=== PATIENT | female | born 1980 | race Caucasian/White ===

== ENCOUNTER → 2019-06-09 | Outpatient (CLI) | payer BC ==
[2019-06-09 20:20] LABS: FREE T3 2.8 PG/ML (2.2-4.0); FREE T4 0.84 NG/DL (0.76-1.46); THYROID STIMULATING HORMONE 3.16 uIU/ML (0.358-3.740); THYROXINE (T4) 6.8 UG/DL (4.5-12.0)
[2019-06-09 20:21] LABS: TOTAL 25(OH) VITAMIN D 95.3 NG/ML (30.0-100.0); TOTAL T3 104.7 NG/DL (60.0-181.0)
== END ==
LOC: M WUC 16:51
PROVIDERS: ATTEND Internal Medicine Endocrinology, Diabetes & Metabolism
DX: Z83.49 Family history of other endocrine, nutritional and metabolic diseases (principal); E05.00 Thyrotoxicosis with diffuse goiter without thyrotoxic crisis or storm; E06.3 Autoimmune thyroiditis; E04.9 Nontoxic goiter, unspecified; E55.9 Vitamin D deficiency, unspecified

== ENCOUNTER → 2019-07-04 | Outpatient (CLI) | payer BC ==
[2019-07-04 11:44] LABS: ALBUMIN 3.8 GM/DL (3.2-5.2); ALT/SGPT 16 U/L (12-78); BILIRUBIN,TOTAL 0.5 MG/DL (0.2-1.0); BLOOD UREA NITROGEN 12 MG/DL (7-18); CALCIUM LEVEL 8.7 MG/DL (8.5-10.1); CARBON DIOXIDE LEVEL 27 MEQ/L (21-32); CHLORIDE LEVEL 108 MEQ/L (98-107); CREATININE FOR GFR 0.57 MG/DL (0.55-1.30); FREE T4 1.05 NG/DL (0.76-1.46); GLOMERULAR FILTRATION RATE > 60.0 (>60); GLUCOSE, FASTING 91 MG/DL (70-100); POTASSIUM SERUM 4.9 MEQ/L (3.5-5.1); SODIUM LEVEL 140 MEQ/L (136-145); THYROID STIMULATING HORMONE 0.727 uIU/ML (0.358-3.740); THYROXINE (T4) 10.4 UG/DL (4.5-12.0); TOTAL PROTEIN 6.8 GM/DL (6.4-8.2)
[2019-07-04 11:45] LABS: TOTAL 25(OH) VITAMIN D 72.3 NG/ML (30.0-100.0); TOTAL T3 114.5 NG/DL (60.0-181.0); VITAMIN B12 LEVEL 424 PG/ML (247-911)
== END ==
LOC: M WUC 08:33
PROVIDERS: ATTEND Internal Medicine Endocrinology, Diabetes & Metabolism
DX: E06.3 Autoimmune thyroiditis (principal); E04.9 Nontoxic goiter, unspecified; E55.9 Vitamin D deficiency, unspecified; E05.00 Thyrotoxicosis with diffuse goiter without thyrotoxic crisis or storm; Z83.49 Family history of other endocrine, nutritional and metabolic diseases

== ENCOUNTER → 2019-10-12 | Outpatient (CLI) | payer BC ==
[2019-10-12 12:38] LABS: ALBUMIN 3.7 GM/DL (3.2-5.2); ALT/SGPT 13 U/L (12-78); BILIRUBIN,TOTAL 0.3 MG/DL (0.2-1.0); BLOOD UREA NITROGEN 15 MG/DL (7-18); CALCIUM LEVEL 8.6 MG/DL (8.5-10.1); CARBON DIOXIDE LEVEL 25 MEQ/L (21-32); CHLORIDE LEVEL 109 MEQ/L (98-107); CREATININE FOR GFR 0.63 MG/DL (0.55-1.30); FREE T4 0.91 NG/DL (0.76-1.46); GLOMERULAR FILTRATION RATE > 60.0 (>60); GLUCOSE, FASTING 92 MG/DL (70-100); POTASSIUM SERUM 4.3 MEQ/L (3.5-5.1); SODIUM LEVEL 139 MEQ/L (136-145); THYROXINE (T4) 9.5 UG/DL (4.5-12.0); TOTAL PROTEIN 6.6 GM/DL (6.4-8.2)
[2019-10-13 09:31] LABS: TOTAL 25(OH) VITAMIN D 67.2 NG/ML (30.0-100.0); VITAMIN B12 LEVEL 338 PG/ML (247-911)
== END ==
LOC: M WUC 08:38
PROVIDERS: ATTEND Internal Medicine Endocrinology, Diabetes & Metabolism
DX: Z83.49 Family history of other endocrine, nutritional and metabolic diseases (principal); E05.00 Thyrotoxicosis with diffuse goiter without thyrotoxic crisis or storm; E06.3 Autoimmune thyroiditis; E04.9 Nontoxic goiter, unspecified; E55.9 Vitamin D deficiency, unspecified

== ENCOUNTER → 2019-12-19 | Outpatient (CLI) | payer BC ==
[2019-12-19 13:40] LABS: ALT/SGPT 18 U/L (12-78); BILIRUBIN,TOTAL 0.9 MG/DL (0.2-1.0); BLOOD UREA NITROGEN 14 MG/DL (7-18); CALCIUM LEVEL 8.8 MG/DL (8.5-10.1); CARBON DIOXIDE LEVEL 26 MEQ/L (21-32); CHLORIDE LEVEL 107 MEQ/L (98-107); CREATININE FOR GFR 0.68 MG/DL (0.55-1.30); FREE T4 0.95 NG/DL (0.76-1.46); GLOMERULAR FILTRATION RATE > 60.0 (>60); GLUCOSE, FASTING 74 MG/DL (70-100); POTASSIUM SERUM 4.8 MEQ/L (3.5-5.1); SODIUM LEVEL 140 MEQ/L (136-145); THYROID STIMULATING HORMONE 0.993 uIU/ML (0.358-3.740); THYROXINE (T4) 9.9 UG/DL (4.5-12.0); TOTAL PROTEIN 7.2 GM/DL (6.4-8.2); VITAMIN B12 LEVEL 329 PG/ML (247-911)
== END ==
LOC: M WUC 08:25
PROVIDERS: ATTEND Internal Medicine Endocrinology, Diabetes & Metabolism
DX: E05.00 Thyrotoxicosis with diffuse goiter without thyrotoxic crisis or storm (principal); E06.3 Autoimmune thyroiditis; E04.9 Nontoxic goiter, unspecified; E55.9 Vitamin D deficiency, unspecified; Z83.49 Family history of other endocrine, nutritional and metabolic diseases

== ENCOUNTER → 2020-04-19 | Outpatient (CLI) | payer BC ==
[2020-04-19 20:37] LABS: ALT/SGPT 17 U/L (12-78); BILIRUBIN,TOTAL 0.3 MG/DL (0.2-1.0); BLOOD UREA NITROGEN 16 MG/DL (7-18); CALCIUM LEVEL 9.1 MG/DL (8.5-10.1); CARBON DIOXIDE LEVEL 26 MEQ/L (21-32); CHLORIDE LEVEL 103 MEQ/L (98-107); CREATININE FOR GFR 0.42 MG/DL (0.55-1.30); FREE T3 2.8 PG/ML (2.2-4.0); FREE T4 0.97 NG/DL (0.76-1.46); GLOMERULAR FILTRATION RATE > 60.0 (>60); GLUCOSE, FASTING 95 MG/DL (70-100); POTASSIUM SERUM 4.6 MEQ/L (3.5-5.1); SODIUM LEVEL 138 MEQ/L (136-145); THYROXINE (T4) 9.8 UG/DL (4.5-12.0); TOTAL PROTEIN 7.1 GM/DL (6.4-8.2)
[2020-04-19 20:38] LABS: TOTAL 25(OH) VITAMIN D 54.6 NG/ML (30.0-100.0); TOTAL T3 115.3 NG/DL (60.0-181.0)
[2020-04-19 20:39] LABS: VITAMIN B12 LEVEL 364 PG/ML (247-911)
== END ==
LOC: M WUC 15:35
PROVIDERS: ATTEND Internal Medicine Endocrinology, Diabetes & Metabolism
DX: E05.00 Thyrotoxicosis with diffuse goiter without thyrotoxic crisis or storm (principal); E06.3 Autoimmune thyroiditis; E04.9 Nontoxic goiter, unspecified; E55.9 Vitamin D deficiency, unspecified; Z83.49 Family history of other endocrine, nutritional and metabolic diseases

== ENCOUNTER → 2020-05-17 | Outpatient (CLI) | payer BC ==
[2020-05-17 16:49] LABS: FREE T4 1.12 NG/DL (0.76-1.46); THYROID STIMULATING HORMONE 0.273 uIU/ML (0.358-3.740); THYROXINE (T4) 9.2 UG/DL (4.5-12.0); TOTAL T3 134.9 NG/DL (60.0-181.0)
== END ==
LOC: M WUC 14:09
PROVIDERS: ATTEND Internal Medicine Endocrinology, Diabetes & Metabolism
DX: E05.00 Thyrotoxicosis with diffuse goiter without thyrotoxic crisis or storm (principal); Z83.49 Family history of other endocrine, nutritional and metabolic diseases; E06.3 Autoimmune thyroiditis; E04.9 Nontoxic goiter, unspecified; E55.9 Vitamin D deficiency, unspecified

== ENCOUNTER → 2020-06-02 | Outpatient (CLI) | payer BC ==
[2020-06-02 10:26] LABS: FREE T3 3.4 PG/ML (2.2-4.0); FREE T4 1.04 NG/DL (0.76-1.46); THYROID STIMULATING HORMONE 0.287 uIU/ML (0.358-3.740); THYROXINE (T4) 10.4 UG/DL (4.5-12.0)
[2020-06-02 10:27] LABS: TOTAL 25(OH) VITAMIN D 35.9 NG/ML (30.0-100.0)
[2020-06-02 10:28] LABS: TOTAL T3 146.3 NG/DL (60.0-181.0)
== END ==
LOC: M WUC 08:17
PROVIDERS: ATTEND Internal Medicine Endocrinology, Diabetes & Metabolism
DX: Z83.49 Family history of other endocrine, nutritional and metabolic diseases (principal); E05.00 Thyrotoxicosis with diffuse goiter without thyrotoxic crisis or storm; E06.3 Autoimmune thyroiditis; E04.9 Nontoxic goiter, unspecified; E55.9 Vitamin D deficiency, unspecified

== ENCOUNTER → 2020-06-28 | Outpatient (CLI) | payer BC ==
[2020-06-28 16:42] LABS: FREE T3 3.2 PG/ML (2.2-4.0); FREE T4 1.01 NG/DL (0.76-1.46); THYROID STIMULATING HORMONE 0.19 uIU/ML (0.358-3.740); THYROXINE (T4) 9.9 UG/DL (4.5-12.0)
[2020-06-28 16:44] LABS: TOTAL 25(OH) VITAMIN D 39.5 NG/ML (30.0-100.0)
[2020-06-28 16:45] LABS: TOTAL T3 137.9 NG/DL (60.0-181.0)
== END ==
LOC: M WUC 13:43
PROVIDERS: ATTEND Internal Medicine Endocrinology, Diabetes & Metabolism
DX: E05.00 Thyrotoxicosis with diffuse goiter without thyrotoxic crisis or storm (principal); E06.3 Autoimmune thyroiditis; E04.9 Nontoxic goiter, unspecified; E55.9 Vitamin D deficiency, unspecified; Z83.49 Family history of other endocrine, nutritional and metabolic diseases

== ENCOUNTER → 2020-08-27 | Outpatient (CLI) | payer BC ==
[2020-08-27 11:49] LABS: FREE T3 2.6 PG/ML (2.2-4.0); FREE T4 0.92 NG/DL (0.76-1.46); THYROID STIMULATING HORMONE 0.187 uIU/ML (0.358-3.740); THYROXINE (T4) 7.6 UG/DL (4.5-12.0); TOTAL 25(OH) VITAMIN D 40.9 NG/ML (30.0-100.0); TOTAL T3 106.6 NG/DL (60.0-181.0)
== END ==
LOC: M WUC 09:02
PROVIDERS: ATTEND Internal Medicine Endocrinology, Diabetes & Metabolism
DX: E05.00 Thyrotoxicosis with diffuse goiter without thyrotoxic crisis or storm (principal); Z83.49 Family history of other endocrine, nutritional and metabolic diseases; E06.3 Autoimmune thyroiditis; E04.9 Nontoxic goiter, unspecified; E55.9 Vitamin D deficiency, unspecified

== ENCOUNTER → 2020-09-14 | Outpatient (CLI) | payer BC ==
[2020-09-14 17:24] LABS: ALBUMIN 3.9 GM/DL (3.2-5.2); ALT/SGPT 21 U/L (12-78); BILIRUBIN,TOTAL 0.4 MG/DL (0.2-1.0); BLOOD UREA NITROGEN 11 MG/DL (7-18); CALCIUM LEVEL 8.8 MG/DL (8.5-10.1); CARBON DIOXIDE LEVEL 25 MEQ/L (21-32); CHLORIDE LEVEL 108 MEQ/L (98-107); FREE T3 3.2 PG/ML (2.2-4.0); FREE T4 1.06 NG/DL (0.76-1.46); GLOMERULAR FILTRATION RATE > 60.0 (>60); GLUCOSE, FASTING 67 MG/DL (70-100); SODIUM LEVEL 139 MEQ/L (136-145); THYROID STIMULATING HORMONE 0.223 uIU/ML (0.358-3.740); THYROXINE (T4) 8.2 UG/DL (4.5-12.0); TOTAL 25(OH) VITAMIN D 49.9 NG/ML (30.0-100.0); TOTAL PROTEIN 6.8 GM/DL (6.4-8.2)
[2020-09-14 17:25] LABS: TOTAL T3 152.8 NG/DL (60.0-181.0); VITAMIN B12 LEVEL 332 PG/ML (247-911)
== END ==
LOC: M WUC 14:50
PROVIDERS: ATTEND Internal Medicine Endocrinology, Diabetes & Metabolism
DX: E05.00 Thyrotoxicosis with diffuse goiter without thyrotoxic crisis or storm (principal); E06.3 Autoimmune thyroiditis; E04.9 Nontoxic goiter, unspecified; E55.9 Vitamin D deficiency, unspecified; Z83.49 Family history of other endocrine, nutritional and metabolic diseases

== ENCOUNTER → 2020-10-12 | Outpatient (REF) | payer BC ==
[2020-10-12 13:36] LABS: HEMATOCRIT 45.4 % (36.0-47.0); HEMOGLOBIN 14.9 g/dl (12.0-15.5); MEAN CORPUSCULAR HEMOGLOBIN 28.6 pg (27.0-33.0); MEAN CORPUSCULAR HGB CONC 32.8 g/dl (32.0-36.5); MEAN CORPUSCULAR VOLUME 87.1 fl (80.0-96.0); PLATELET COUNT, AUTOMATED 266 10^3/uL (150-450); RED BLOOD COUNT 5.21 10^6/uL (4.00-5.40)
[2020-10-12 14:57] LABS: HEPATITIS C VIRUS ABY INDEX < 0.0 INDEX (<0.8); HIV 1&2 SCREEN CENTAUR NEGATIVE (NEGATIVE)
[2020-10-12 15:19] LABS: CHLAMYDIA DNA AMPLIFICATION NEGATIVE (NEGATIVE); GC DNA AMPLIFICATION NEGATIVE (NEGATIVE)
== END ==
LOC: M PLALAB 09:32
PROVIDERS: ATTEND Specialist
DX: Z34.81 Encounter for supervision of other normal pregnancy, first trimester (principal)

== ENCOUNTER → 2020-10-13 | Outpatient (CLI) | payer BC ==
[2020-10-13 18:41] LABS: FREE T3 3.4 PG/ML (2.2-4.0); FREE T4 1.04 NG/DL (0.76-1.46); THYROID STIMULATING HORMONE 0.14 uIU/ML (0.358-3.740); THYROXINE (T4) 9.8 UG/DL (4.5-12.0)
[2020-10-13 18:42] LABS: TOTAL 25(OH) VITAMIN D 36.5 NG/ML (30.0-100.0)
== END ==
LOC: M WUC 14:25
PROVIDERS: ATTEND Internal Medicine Endocrinology, Diabetes & Metabolism
DX: E05.00 Thyrotoxicosis with diffuse goiter without thyrotoxic crisis or storm (principal); Z83.49 Family history of other endocrine, nutritional and metabolic diseases; E06.3 Autoimmune thyroiditis; E04.9 Nontoxic goiter, unspecified; E55.9 Vitamin D deficiency, unspecified

== ENCOUNTER 2020-11-06 20:46 | Emergency (ER) | payer BC ==
[~2020-11-06] VITALS: Ht 147.3 cm; Wt 80.1 kg
[2020-11-06 21:46] LABS: BASO % 0.3 % (0.0-1.0); EOS # 0.2 10^3/uL (0.0-0.5); EOS % 1.3 % (0.0-3.0); HEMATOCRIT 42.6 % (36.0-47.0); HEMOGLOBIN 14.4 g/dl (12.0-15.5); LYMPH # 2.9 10^3/uL (1.5-5.0); LYMPH % 19.5 % (24.0-44.0); MEAN CORPUSCULAR HEMOGLOBIN 28.7 pg (27.0-33.0); MEAN CORPUSCULAR HGB CONC 33.8 g/dl (32.0-36.5); MONO # 1.4 10^3/uL (0.0-0.8); MONO % 9.5 % (2.0-8.0); NEUTROPHILS # 10.2 10^3/uL (1.5-8.5); PLATELET COUNT, AUTOMATED 251 10^3/uL (150-450); RED BLOOD COUNT 5.01 10^6/uL (4.00-5.40); WHITE BLOOD COUNT 14.8 10^3/uL (4.0-10.0)
--- NOTE | 2020-11-06 22:14 | REPVR ---
PROCEDURE INFORMATION: Exam: US First Trimester, Transabdominal Exam date and time: 11/06/2020 9:24 PM Age: 40 years old Clinical indication: Lmp or gestational age (in weeks): 12w 2d; Other: Vaginal bleeding; ; Additional info: Vaginal bleeding, 12 weeks TECHNIQUE: Imaging protocol: Real-time transabdominal obstetrical ultrasound of the maternal pelvis and a first trimester , less than 14 weeks 0 days, with image documentation. COMPARISON: No relevant prior studies available. FINDINGS: Gestation: Intrauterine gestation unremarkable. Embryonic/ heart rate: heart rate 153 bpm. Extra-embryonic membranes/Placenta: Unremarkable. No subchorionic bleed. Amniotic fluid: Amniotic fluid is normal for gestational age. BIOMETRY: Gestational age (AUA): Gestational age 12 weeks and 3 days. Estimated due date (AUA): Estimated due date May 18, 2021. Vickery-Rump length: Vickery-rump length measures 5.8 cm. MATERNAL: Uterus: Unremarkable. Cervix: Unremarkable. Right adnexa: Unremarkable right ovary measuring 2.2 cm. Left adnexa: Left ovary not visualized. Intraperitoneal space: No intraperitoneal free fluid. IMPRESSION: 1. No acute abnormality. 2. Living intrauterine gestation measuring 12 weeks and 3 days with due date May 18, 2021. Electronically signed by: Ruben Celaya On 11/06/2020 22:14:24 PM
[2020-11-06 22:53] LABS: BLOOD UREA NITROGEN 8 MG/DL (7-18); CALCIUM LEVEL 9.2 MG/DL (8.5-10.1); CARBON DIOXIDE LEVEL 25 MEQ/L (21-32); CHLORIDE LEVEL 108 MEQ/L (98-107); CREATININE FOR GFR 0.42 MG/DL (0.55-1.30); GLOMERULAR FILTRATION RATE > 60.0 (>60); GLUCOSE, FASTING 84 MG/DL (70-100); HCG, SERUM QUANTITATIVE 13180 MIU/ML; POTASSIUM SERUM 3.9 MEQ/L (3.5-5.1); SODIUM LEVEL 140 MEQ/L (136-145)
[2020-11-06 23:23] VITALS: BP 140/96
[2020-11-07 00:57] LABS: APPEARANCE, URINE CLEAR (CLEAR); BACTERIA, URINE AUTO NEGATIVE (NEGATIVE); BILIRUBIN, URINE AUTO NEGATIVE (NEGATIVE); BLOOD, URINE BLOOD 2+ (NEGATIVE); COLOR, URINE YELLOW (YELLOW); GLUCOSE, URINE (UA) AUTO NEGATIVE (NEGATIVE); KETONE, URINE AUTO 1+ mg/dL (NEGATIVE); LEUKOCYTE ESTERASE, URINE AUTO NEGATIVE (NEGATIVE); NITRITE, URINE AUTO NEGATIVE (NEGATIVE); PROTEIN, URINE AUTO NEGATIVE (NEGATIVE); RBC, URINE AUTO 2 /HPF (0-3); SPECIFIC GRAVITY URINE AUTO 1.014 (1.002-1.035); SQUAMOUS EPITHELIAL CELL UR AU 0 /HPF (0-6); UROBILINOGEN, URINE AUTO 0.2 mg/dL (0.0-2.0); WBC, URINE AUTO 0 /HPF (0-3)
== END 2020-11-07 01:48 | disposition home or self-care (01) ==
LOC: M ED 20:46
DX: O20.8 Other hemorrhage in early pregnancy (principal); Z3A.12 12 weeks gestation of pregnancy; O99.331 Smoking (tobacco) complicating pregnancy, first trimester; O99.281 Endocrine, nutritional and metabolic diseases complicating pregnancy, first trimester; O09.521 Supervision of elderly multigravida, first trimester

== ENCOUNTER → 2020-11-10 | Outpatient (CLI) | payer BC ==
[2020-11-10 17:08] LABS: FREE T3 3.3 PG/ML (2.2-4.0); FREE T4 1.05 NG/DL (0.76-1.46); THYROID STIMULATING HORMONE 0.178 uIU/ML (0.358-3.740)
[2020-11-10 17:10] LABS: TOTAL 25(OH) VITAMIN D 46.2 NG/ML (30.0-100.0)
[2020-11-10 17:11] LABS: TOTAL T3 245.8 NG/DL (60.0-181.0)
== END ==
LOC: M WUC 14:18
PROVIDERS: ATTEND Internal Medicine Endocrinology, Diabetes & Metabolism
DX: O99.280 Endocrine, nutritional and metabolic diseases complicating pregnancy, unspecified trimester (principal); Z83.49 Family history of other endocrine, nutritional and metabolic diseases; E05.00 Thyrotoxicosis with diffuse goiter without thyrotoxic crisis or storm; E06.3 Autoimmune thyroiditis; E04.9 Nontoxic goiter, unspecified; E55.9 Vitamin D deficiency, unspecified

== ENCOUNTER → 2020-12-08 | Outpatient (CLI) | payer BC ==
[2020-12-08 16:50] LABS: FREE T3 3.2 PG/ML (2.2-4.0); FREE THYROXINE INDEX 3.7 % (1.3-4.8); THYROID STIMULATING HORMONE 0.216 uIU/ML (0.358-3.740); THYROXINE (T4) 16.1 UG/DL (4.5-12.0); TOTAL T3 272.4 NG/DL (60.0-181.0)
== END ==
LOC: M WUC 13:42
PROVIDERS: ATTEND Internal Medicine Endocrinology, Diabetes & Metabolism
DX: E05.00 Thyrotoxicosis with diffuse goiter without thyrotoxic crisis or storm (principal); E06.3 Autoimmune thyroiditis; E04.9 Nontoxic goiter, unspecified; O99.280 Endocrine, nutritional and metabolic diseases complicating pregnancy, unspecified trimester; E55.9 Vitamin D deficiency, unspecified; Z83.49 Family history of other endocrine, nutritional and metabolic diseases; Z3A.00 Weeks of gestation of pregnancy not specified

== ENCOUNTER → 2020-12-24 | Outpatient (CLI) | payer BC ==
--- NOTE | 2020-12-24 09:18 | REP ---
INDICATION: ANATOMY. COMPARISON: Comparison study November 06, 2020. TECHNIQUE: Transabdominal obstetric sonography. FINDINGS: Scanning through the gravid uterus demonstrates a viable single intrauterine gestation in transverse lie. motion is observed and heart rate is recorded at 133 beats per minute. A a fundal placenta is seen, grade 1, without evidence of placenta previa. Closed cervical length is measured at 5.2 cm transabdominally. No extrauterine abnormality is observed. Amniotic fluid is subjectively normal. The following anatomic structures are identified felt to be unremarkable: cranium and intracranial contents, lungs, four-chamber heart, diaphragm, left-sided stomach, abdominal wall cord insertion, right and left kidney, urinary bladder, upper and lower extremities, three-vessel cord. The following anatomic structures are less than optimally identified due to body habitus and position: Face and profile nose and lips, left and right ventricular cardiac outflow tract views, spine. Biometry chart: BPD 4.5 cm, 19 weeks 4 days Head circumference 16.8 cm, 19 weeks 3 days Abdominal circumference 14.2 cm, 19 weeks 4 days Femur length 3.1 cm, 19 weeks 4 days Humeral length 2.8 cm, 19 weeks 1 day HC AC ratio normal 1.19 Cephalic index normal 0.74 Estimated weight 299 g, 0 lb 10 oz, 84th percentile for 18 weeks 6 days IMPRESSION: Viable single intrauterine gestation at 19 weeks 3 days by today's composite sonographic criteria. JUANITA by today's sonography May 17, 2021. No complication identified. Expected gestational age estimate based on known JUANITA of 21 May 2021 is 18 weeks 6 days. Appropriate interval growth. anatomic survey is less than complete as above. <Electronically signed by Shun Hernandez > 12/24/20 [id number]
== END ==
LOC: M WHC 07:16
PROVIDERS: ATTEND Advanced Practice Midwife
DX: O34.211 Maternal care for low transverse scar from previous cesarean delivery (principal); O32.2XX0 Maternal care for transverse and oblique lie, not applicable or unspecified; Z3A.19 19 weeks gestation of pregnancy

== ENCOUNTER → 2021-01-04 | Outpatient (CLI) | payer BC ==
[2021-01-04 16:24] LABS: FREE T3 3.4 PG/ML (2.2-4.0); FREE T4 0.97 NG/DL (0.76-1.46); THYROID STIMULATING HORMONE 0.302 uIU/ML (0.358-3.740); THYROXINE (T4) 15.1 UG/DL (4.5-12.0); TOTAL T3 281.1 NG/DL (60.0-181.0)
== END ==
LOC: M WUC 13:24
PROVIDERS: ATTEND Internal Medicine Endocrinology, Diabetes & Metabolism
DX: O99.280 Endocrine, nutritional and metabolic diseases complicating pregnancy, unspecified trimester (principal); Z83.49 Family history of other endocrine, nutritional and metabolic diseases; E05.00 Thyrotoxicosis with diffuse goiter without thyrotoxic crisis or storm; E06.3 Autoimmune thyroiditis; E04.9 Nontoxic goiter, unspecified; E55.9 Vitamin D deficiency, unspecified

== ENCOUNTER → 2021-02-11 | Outpatient (CLI) | payer BC, MEDICAID ==
--- NOTE | 2021-02-11 09:58 | REP ---
INDICATION: F/U ANATOMY COMPARISON: 12/24/2020 TECHNIQUE: Transabdominal obstetrical ultrasound with color Doppler evaluation. FINDINGS: Examination demonstrates a single live intrauterine in transverse (head to maternal right) presentation. motion is identified by technologist. Placenta is noted fundal and grade 1 without evidence for placenta previa or abruption. Amniotic fluid volume is normal. Cervix measures 4.6 cm in length and appears closed.. Selected gestational age: 25 weeks 6 days with JUANITA 05/21/2021. Gestational age by current measurements 27 weeks 3 days with JUANITA 05/10/2021. FHR equals 150 beats per minute. Estimated weight 1093 grams (greater than 97thpercentile). Anatomical assessment demonstrates normal structures including facial features, facial profile, nose/lips, heart/ventricular outflow tracts. Spine again poorly evaluated due to positioning.. IMPRESSION: 1. Single live intrauterine in transverse lie. 2. Greater than expected interval growth is appreciated based on selected age by estimated date of delivery at 25 weeks 6 days. 3. Continued limited evaluation of the spine. Remainder of the anatomical assessment is complete and normal. <Electronically signed by Juan Cline > 02/11/21 [id number]
== END ==
LOC: M WHC 08:26
PROVIDERS: ATTEND Obstetrics & Gynecology
DX: O34.211 Maternal care for low transverse scar from previous cesarean delivery (principal); O32.2XX0 Maternal care for transverse and oblique lie, not applicable or unspecified; Z3A.25 25 weeks gestation of pregnancy; O36.63X0 Maternal care for excessive fetal growth, third trimester, not applicable or unspecified

== ENCOUNTER → 2021-02-14 | Outpatient (CLI) | payer BC, MEDICAID ==
[2021-02-14 10:29] LABS: HEMATOCRIT 36.3 % (36.0-47.0); MEAN CORPUSCULAR HEMOGLOBIN 29.1 pg (27.0-33.0); MEAN CORPUSCULAR HGB CONC 33.1 g/dl (32.0-36.5); MEAN CORPUSCULAR VOLUME 88.1 fl (80.0-96.0); PLATELET COUNT, AUTOMATED 245 10^3/uL (150-450); RED BLOOD COUNT 4.12 10^6/uL (4.00-5.40); WHITE BLOOD COUNT 15.8 10^3/uL (4.0-10.0)
[2021-02-14 11:37] LABS: THYROID STIMULATING HORMONE 0.287 uIU/ML (0.358-3.740)
== END ==
LOC: M PLALAB 07:53
PROVIDERS: ATTEND Obstetrics & Gynecology
DX: O34.211 Maternal care for low transverse scar from previous cesarean delivery (principal)

== ENCOUNTER → 2021-03-14 | Outpatient (CLI) | payer BC, MEDICAID ==
--- NOTE | 2021-03-14 08:28 | REP ---
INDICATION: F/U ANATOMY COMPARISON: 02/11/2021 TECHNIQUE: Transabdominal obstetrical ultrasound with color Doppler evaluation. FINDINGS: Examination demonstrates a single live intrauterine in cephalic presentation. motion is identified by technologist. Placenta is noted fundal and grade 1 without evidence for placenta previa or abruption. Amniotic fluid volume is normal. Cervix measures 4.4 cm in length and appears closed.. Selected gestational age: 30 weeks 2 days with JUANITA 05/21/2021. Gestational age by current measurements 32 weeks 2 days with JUANITA 05/07/2021. FHR equals 130 beats per minute. Estimated weight 1859 grams (88thpercentile). MARY: 16.3 cm Anatomical assessment demonstrates normal structures including spine. IMPRESSION: Single live intrauterine in cephalic presentation demonstrating appropriate interval growth. In conjunction with prior examination anatomical assessment is complete and normal. <Electronically signed by Juan Cline > 03/14/21 [id number]
== END ==
LOC: M WHC 07:10
PROVIDERS: ATTEND Obstetrics & Gynecology
DX: O34.211 Maternal care for low transverse scar from previous cesarean delivery (principal); Z3A.30 30 weeks gestation of pregnancy

== ENCOUNTER → 2021-03-18 | Outpatient (CLI) | payer BC, MEDICAID ==
[2021-03-18 10:20] LABS: FREE T4 0.95 NG/DL (0.76-1.46); THYROGLOBULIN ANTIBODY < 15.0 U/ML (<60.0); THYROID STIMULATING HORMONE 0.551 uIU/ML (0.358-3.740)
== END ==
LOC: M LAB 08:23
PROVIDERS: ATTEND Obstetrics & Gynecology
DX: O99.891 Other specified diseases and conditions complicating pregnancy (principal); R73.09 Other abnormal glucose; O99.282 Endocrine, nutritional and metabolic diseases complicating pregnancy, second trimester; E06.3 Autoimmune thyroiditis; Z3A.00 Weeks of gestation of pregnancy not specified

== ENCOUNTER → 2021-04-08 | Outpatient (CLI) | payer BC, MEDICAID ==
[2021-04-08 13:47] LABS: BLOOD UREA NITROGEN 8 MG/DL (7-18); CARBON DIOXIDE LEVEL 23 MEQ/L (21-32); CHLORIDE LEVEL 110 MEQ/L (98-107); CREATININE FOR GFR 0.52 MG/DL (0.55-1.30); GLOMERULAR FILTRATION RATE > 60.0 (>60); GLUCOSE, FASTING 85 MG/DL (70-100); POTASSIUM SERUM 4.3 MEQ/L (3.5-5.1); SODIUM LEVEL 140 MEQ/L (136-145)
[2021-04-08 13:48] LABS: ALBUMIN 2.8 GM/DL (3.2-5.2); ALT/SGPT 18 U/L (12-78); BILIRUBIN,TOTAL 0.2 MG/DL (0.2-1.0); CALCIUM LEVEL 9.3 MG/DL (8.5-10.1); FREE T3 2.9 PG/ML (2.2-4.0); THYROID STIMULATING HORMONE 0.271 uIU/ML (0.358-3.740); THYROXINE (T4) 15.9 UG/DL (4.5-12.0); TOTAL 25(OH) VITAMIN D 53.9 NG/ML (30.0-100.0); TOTAL PROTEIN 6.2 GM/DL (6.4-8.2); TOTAL T3 219.8 NG/DL (60.0-181.0); VITAMIN B12 LEVEL 398 PG/ML (247-911)
== END ==
LOC: M WUC 10:17
PROVIDERS: ATTEND Internal Medicine Endocrinology, Diabetes & Metabolism
DX: O99.280 Endocrine, nutritional and metabolic diseases complicating pregnancy, unspecified trimester (principal); E05.00 Thyrotoxicosis with diffuse goiter without thyrotoxic crisis or storm; E06.3 Autoimmune thyroiditis; E55.9 Vitamin D deficiency, unspecified

== ENCOUNTER → 2021-04-11 | Outpatient (CLI) | payer BC, MEDICAID ==
[~2021-04-11] MED LIST: ACET-897 PO; AFRI0.058; ECOT81TA5 PO; ERGO500029 PO; FAMO20TA5 PO; IBUP-1022 PO; OXYC1TAB23 PO; PRENTAB9 PO
== END ==
LOC: M WHC 07:37
PROVIDERS: ATTEND Obstetrics & Gynecology
DX: O26.843 Uterine size-date discrepancy, third trimester (principal); Z3A.34 34 weeks gestation of pregnancy

== ENCOUNTER → 2021-04-18 | Outpatient (REF) | payer BC, MEDICAID | LOC: M SFHCWAGY 16:47 | PROVIDERS: ATTEND Specialist | DX: Z34.83 Encounter for supervision of other normal pregnancy, third trimester (principal) ==

== ENCOUNTER → 2021-06-08 | Outpatient (CLI) | payer BC, MEDICAID ==
[2021-06-08 13:01] LABS: ALBUMIN 3.7 GM/DL (3.2-5.2); ALT/SGPT 24 U/L (12-78); BILIRUBIN,TOTAL 0.3 MG/DL (0.2-1.0); BLOOD UREA NITROGEN 13 MG/DL (7-18); CALCIUM LEVEL 8.9 MG/DL (8.5-10.1); CARBON DIOXIDE LEVEL 29 MEQ/L (21-32); CHLORIDE LEVEL 109 MEQ/L (98-107); CREATININE FOR GFR 0.73 MG/DL (0.55-1.30); FREE T3 2.8 PG/ML (2.2-4.0); FREE T4 1.06 NG/DL (0.76-1.46); GLOMERULAR FILTRATION RATE > 60.0 (>60); GLUCOSE, FASTING 93 MG/DL (70-100); POTASSIUM SERUM 4.5 MEQ/L (3.5-5.1); SODIUM LEVEL 143 MEQ/L (136-145); THYROXINE (T4) 11.3 UG/DL (4.5-12.0); TOTAL PROTEIN 6.8 GM/DL (6.4-8.2)
[2021-06-08 13:03] LABS: TOTAL 25(OH) VITAMIN D 55.6 NG/ML (30.0-100.0)
[2021-06-08 13:04] LABS: TOTAL T3 116.7 NG/DL (60.0-181.0); VITAMIN B12 LEVEL 287 PG/ML (247-911)
== END ==
LOC: M WUC 10:08
PROVIDERS: ATTEND Internal Medicine Endocrinology, Diabetes & Metabolism
DX: E05.00 Thyrotoxicosis with diffuse goiter without thyrotoxic crisis or storm (principal); E06.3 Autoimmune thyroiditis; E04.9 Nontoxic goiter, unspecified; O99.280 Endocrine, nutritional and metabolic diseases complicating pregnancy, unspecified trimester; E55.9 Vitamin D deficiency, unspecified; Z83.49 Family history of other endocrine, nutritional and metabolic diseases

== ENCOUNTER → 2021-09-08 | Outpatient (CLI) | payer BC, MEDICAID ==
[~2021-09-08] MED LIST changes: -AFRI0.058; +OXYM15SP2
[2021-09-08 09:40] LABS: BASO % 0.4 % (0.0-1.0); EOS # 0.1 10^3/uL (0.0-0.5); EOS % 0.5 % (0.0-3.0); HEMATOCRIT 43.5 % (36.0-47.0); HEMOGLOBIN 13.9 g/dl (12.0-15.5); LYMPH # 2.8 10^3/uL (1.5-5.0); LYMPH % 25.7 % (24.0-44.0); MEAN CORPUSCULAR HEMOGLOBIN 25.9 pg (27.0-33.0); MEAN CORPUSCULAR VOLUME 81.2 fl (80.0-96.0); MONO # 1.1 10^3/uL (0.0-0.8); MONO % 10.3 % (2.0-8.0); NEUTROPHILS # 6.8 10^3/uL (1.5-8.5); NEUTROPHILS % 62.8 % (36.0-66.0); PLATELET COUNT, AUTOMATED 301 10^3/uL (150-450); RED BLOOD COUNT 5.36 10^6/uL (4.00-5.40); WHITE BLOOD COUNT 10.8 10^3/uL (4.0-10.0)
[2021-09-08 10:15] LABS: ALBUMIN 3.5 GM/DL (3.2-5.2); ALT/SGPT 22 U/L (12-78); BILIRUBIN,TOTAL 0.4 MG/DL (0.2-1.0); BLOOD UREA NITROGEN 11 MG/DL (7-18); CALCIUM LEVEL 9.3 MG/DL (8.5-10.1); CARBON DIOXIDE LEVEL 25 MEQ/L (21-32); CHLORIDE LEVEL 109 MEQ/L (98-107); CREATININE FOR GFR 0.59 MG/DL (0.55-1.30); FREE T3 3.8 PG/ML (2.2-4.0); FREE T4 1.34 NG/DL (0.76-1.46); GLOMERULAR FILTRATION RATE > 60.0 (>60); GLUCOSE, FASTING 89 MG/DL (70-100); POTASSIUM SERUM 4.2 MEQ/L (3.5-5.1); SODIUM LEVEL 141 MEQ/L (136-145); THYROID STIMULATING HORMONE 0.006 uIU/ML (0.358-3.740); THYROXINE (T4) 12.8 UG/DL (4.5-12.0); TOTAL PROTEIN 6.7 GM/DL (6.4-8.2)
[2021-09-08 10:16] LABS: TOTAL T3 166.6 NG/DL (60.0-181.0)
== END ==
LOC: M WUC 08:14
PROVIDERS: ATTEND Internal Medicine Endocrinology, Diabetes & Metabolism
DX: O99.280 Endocrine, nutritional and metabolic diseases complicating pregnancy, unspecified trimester (principal); E05.00 Thyrotoxicosis with diffuse goiter without thyrotoxic crisis or storm; E06.3 Autoimmune thyroiditis; E04.9 Nontoxic goiter, unspecified; E55.9 Vitamin D deficiency, unspecified; Z3A.00 Weeks of gestation of pregnancy not specified; Z83.49 Family history of other endocrine, nutritional and metabolic diseases

== ENCOUNTER → 2021-11-23 | Outpatient (CLI) | payer BC, MEDICAID ==
[2021-11-23 11:06] LABS: ALBUMIN 3.6 GM/DL (3.2-5.2); ALT/SGPT 18 U/L (12-78); BILIRUBIN,TOTAL 0.3 MG/DL (0.2-1.0); BLOOD UREA NITROGEN 10 MG/DL (7-18); CALCIUM LEVEL 8.9 MG/DL (8.5-10.1); CARBON DIOXIDE LEVEL 25 MEQ/L (21-32); CHLORIDE LEVEL 107 MEQ/L (98-107); CREATININE FOR GFR 0.55 MG/DL (0.55-1.30); FREE T4 1.11 NG/DL (0.76-1.46); GLOMERULAR FILTRATION RATE > 60.0 (>60); GLUCOSE, FASTING 92 MG/DL (70-100); POTASSIUM SERUM 4.3 MEQ/L (3.5-5.1); SODIUM LEVEL 138 MEQ/L (136-145); THYROID STIMULATING HORMONE < 0.005 uIU/ML (0.358-3.740); THYROXINE (T4) 11.5 UG/DL (4.5-12.0); TOTAL PROTEIN 6.6 GM/DL (6.4-8.2)
[2021-11-23 11:31] LABS: TOTAL T3 152.8 NG/DL (60.0-181.0)
== END ==
LOC: M WUC 08:47
PROVIDERS: ATTEND Internal Medicine Endocrinology, Diabetes & Metabolism
DX: O99.280 Endocrine, nutritional and metabolic diseases complicating pregnancy, unspecified trimester (principal); Z83.49 Family history of other endocrine, nutritional and metabolic diseases; E05.00 Thyrotoxicosis with diffuse goiter without thyrotoxic crisis or storm; E55.9 Vitamin D deficiency, unspecified

== ENCOUNTER → 2021-12-27 | Outpatient (CLI) | payer BC, MEDICAID ==
[2021-12-27 17:25] LABS: FREE T4 0.87 NG/DL (0.76-1.46); THYROID STIMULATING HORMONE 0.029 uIU/ML (0.358-3.740); THYROXINE (T4) 8.5 UG/DL (4.5-12.0)
[2021-12-27 18:50] LABS: TOTAL 25(OH) VITAMIN D 60.6 NG/ML (30.0-100.0)
[2021-12-27 18:51] LABS: TOTAL T3 123.8 NG/DL (60.0-181.0)
== END ==
LOC: M WUC 13:42
PROVIDERS: ATTEND Internal Medicine Endocrinology, Diabetes & Metabolism
DX: E05.00 Thyrotoxicosis with diffuse goiter without thyrotoxic crisis or storm (principal); E06.3 Autoimmune thyroiditis; E04.9 Nontoxic goiter, unspecified; Z83.49 Family history of other endocrine, nutritional and metabolic diseases; E55.9 Vitamin D deficiency, unspecified

== ENCOUNTER → 2022-02-23 | Outpatient (CLI) | payer BC, MEDICAID ==
[2022-02-23 13:20] LABS: ALT/SGPT 21 U/L (12-78); BILIRUBIN,TOTAL 0.4 MG/DL (0.2-1.0); BLOOD UREA NITROGEN 12 MG/DL (7-18); CALCIUM LEVEL 9.4 MG/DL (8.5-10.1); CARBON DIOXIDE LEVEL 26 MEQ/L (21-32); CHLORIDE LEVEL 106 MEQ/L (98-107); CREATININE FOR GFR 0.69 MG/DL (0.55-1.30); FREE T3 2.8 PG/ML (2.2-4.0); FREE T4 0.81 NG/DL (0.76-1.46); GLOMERULAR FILTRATION RATE > 60.0 (>60); GLUCOSE, FASTING 89 MG/DL (70-100); POTASSIUM SERUM 4.2 MEQ/L (3.5-5.1); SODIUM LEVEL 138 MEQ/L (136-145); THYROID STIMULATING HORMONE 0.694 uIU/ML (0.358-3.740); THYROXINE (T4) 8.6 UG/DL (4.5-12.0); TOTAL PROTEIN 7.2 GM/DL (6.4-8.2)
[2022-02-23 19:10] LABS: TOTAL 25(OH) VITAMIN D 84.5 NG/ML (30.0-100.0); TOTAL T3 83.1 NG/DL (60.0-181.0); VITAMIN B12 LEVEL > 2000 PG/ML (247-911)
== END ==
LOC: M WUC 09:55
PROVIDERS: ATTEND Internal Medicine Endocrinology, Diabetes & Metabolism
DX: E05.00 Thyrotoxicosis with diffuse goiter without thyrotoxic crisis or storm (principal); Z83.49 Family history of other endocrine, nutritional and metabolic diseases; E06.3 Autoimmune thyroiditis; E04.9 Nontoxic goiter, unspecified; E53.8 Deficiency of other specified B group vitamins; E55.9 Vitamin D deficiency, unspecified

== ENCOUNTER → 2022-05-04 | Outpatient (CLI) | payer BC, MEDICAID ==
[2022-05-04 10:25] LABS: ALKALINE PHOSPHATASE 87 U/L (46-116); ALT/SGPT 18 U/L (7.0-40); AST/SGOT 13 U/L (<34); BILIRUBIN,TOTAL 0.3 MG/DL (0.3-1.2); BLOOD UREA NITROGEN 17 MG/DL (9-23); CALCIUM LEVEL 8.9 MG/DL (8.5-10.1); CARBON DIOXIDE LEVEL 27 MMOL/L (20-31); CHLORIDE LEVEL 106 MMOL/L (98-107); GLOMERULAR FILTRATION RATE > 60.0 (>60); GLUCOSE, FASTING 95 MG/DL (60-100); POTASSIUM SERUM 4.4 MMOL/L (3.5-5.1); SODIUM LEVEL 139 MMOL/L (136-145); TOTAL PROTEIN 6.7 G/DL (5.7-8.2)
[2022-05-04 10:32] LABS: THYROXINE (T4) 5.3 UG/DL (4.5-10.9)
[2022-05-04 10:33] LABS: FREE T3 3.3 PG/ML (2.3-4.2); VITAMIN B12 LEVEL 1442 PG/ML (211-911)
[2022-05-04 10:34] LABS: FREE THYROXINE INDEX 1.5 % (1.3-4.8); T UPTAKE 28.5 % (22.5-37.0); THYROID STIMULATING HORMONE 8.565 uIU/ML (0.55-4.78)
[2022-05-04 14:36] LABS: TOTAL 25(OH) VITAMIN D 78.8 NG/ML (20.0-100.0)
== END ==
LOC: M WUC 08:17
PROVIDERS: ATTEND Internal Medicine Endocrinology, Diabetes & Metabolism
DX: E05.00 Thyrotoxicosis with diffuse goiter without thyrotoxic crisis or storm (principal); E06.3 Autoimmune thyroiditis; E04.9 Nontoxic goiter, unspecified; O99.280 Endocrine, nutritional and metabolic diseases complicating pregnancy, unspecified trimester; E53.8 Deficiency of other specified B group vitamins; E55.9 Vitamin D deficiency, unspecified

== ENCOUNTER → 2022-05-22 | Outpatient (CLI) | payer BC, MEDICAID ==
[2022-05-22 17:22] LABS: BASO % 0.3 % (0.0-1.0); EOS % 0.3 % (0.0-3.0); HEMATOCRIT 44.5 % (36.0-47.0); HEMOGLOBIN 14.2 g/dl (12.0-15.5); LYMPH # 3.2 10^3/uL (1.5-5.0); LYMPH % 24.5 % (24.0-44.0); MEAN CORPUSCULAR HEMOGLOBIN 27.7 pg (27.0-33.0); MEAN CORPUSCULAR HGB CONC 31.9 g/dl (32.0-36.5); MEAN CORPUSCULAR VOLUME 86.7 fl (80.0-96.0); MONO # 1.1 10^3/uL (0.0-0.8); MONO % 8.5 % (2.0-8.0); NEUTROPHILS # 8.5 10^3/uL (1.5-8.5); PLATELET COUNT, AUTOMATED 287 10^3/uL (150-450); RED BLOOD COUNT 5.13 10^6/uL (4.00-5.40); WHITE BLOOD COUNT 12.9 10^3/uL (4.0-10.0)
[2022-05-22 18:02] LABS: ALBUMIN 4.1 G/DL (3.2-5.2); BILIRUBIN,TOTAL 0.5 MG/DL (0.3-1.2); CALCIUM LEVEL 9.1 MG/DL (8.5-10.1); CHOLESTEROL RISK RATIO 3.38 (<5); CREATININE FOR GFR 1.14 MG/DL (0.55-1.30); FREE T3 2.7 PG/ML (2.3-4.2); FREE T4 0.54 NG/DL (0.89-1.76); GLOMERULAR FILTRATION RATE 56.5 (>60); HDL CHOLESTEROL 50.2 MG/DL (>40); LDL CHOLESTEROL 94.4 MG/DL (<100); POTASSIUM SERUM 4.4 MMOL/L (3.5-5.1); THYROID STIMULATING HORMONE 7.471 uIU/ML (0.55-4.78); TOTAL 25(OH) VITAMIN D 96.8 NG/ML (20.0-100.0); TOTAL PROTEIN 7.1 G/DL (5.7-8.2)
== END ==
LOC: M WUC 14:25
PROVIDERS: ATTEND Family Medicine
DX: I10 Essential (primary) hypertension (principal); E05.90 Thyrotoxicosis, unspecified without thyrotoxic crisis or storm

== ENCOUNTER → 2022-06-22 | Outpatient (CLI) | payer BC, MEDICAID ==
[2022-06-22 17:01] LABS: TOTAL T3 117.7 NG/DL (60.0-181.0)
[2022-06-22 17:02] LABS: FREE T3 3.3 PG/ML (2.3-4.2)
[2022-06-22 17:03] LABS: FREE T4 0.74 NG/DL (0.89-1.76)
[2022-06-22 17:04] LABS: THYROID STIMULATING HORMONE 4.383 uIU/ML (0.55-4.78)
== END ==
LOC: M WUC 14:55
PROVIDERS: ATTEND Internal Medicine Endocrinology, Diabetes & Metabolism
DX: E05.00 Thyrotoxicosis with diffuse goiter without thyrotoxic crisis or storm (principal); Z83.49 Family history of other endocrine, nutritional and metabolic diseases; E06.3 Autoimmune thyroiditis; E04.9 Nontoxic goiter, unspecified; E53.8 Deficiency of other specified B group vitamins; E55.9 Vitamin D deficiency, unspecified

== ENCOUNTER → 2022-08-11 | Outpatient (REF) | payer BC, MEDICAID, OTHER ==
[2022-08-11 10:30] LABS: BASO % 0.4 % (0.0-1.0); EOS # 0.1 10^3/uL (0.0-0.5); EOS % 1.1 % (0.0-3.0); HEMATOCRIT 44.6 % (36.0-47.0); LYMPH # 2.3 10^3/uL (1.5-5.0); LYMPH % 23.4 % (24.0-44.0); MEAN CORPUSCULAR HEMOGLOBIN 27.3 pg (27.0-33.0); MEAN CORPUSCULAR HGB CONC 31.4 g/dl (32.0-36.5); MEAN CORPUSCULAR VOLUME 87.1 fl (80.0-96.0); MONO # 0.8 10^3/uL (0.0-0.8); MONO % 8.1 % (2.0-8.0); NEUTROPHILS # 6.6 10^3/uL (1.5-8.5); NEUTROPHILS % 66.8 % (36.0-66.0); PLATELET COUNT, AUTOMATED 314 10^3/uL (150-450); RED BLOOD COUNT 5.12 10^6/uL (4.00-5.40); WHITE BLOOD COUNT 9.8 10^3/uL (4.0-10.0)
[2022-08-11 11:04] LABS: ALBUMIN 3.8 G/DL (3.2-5.2); ALKALINE PHOSPHATASE 98 U/L (46-116); ALT/SGPT 14 U/L (7.0-40); AST/SGOT 15 U/L (<34); BILIRUBIN,TOTAL 0.3 MG/DL (0.3-1.2); BLOOD UREA NITROGEN 15 MG/DL (9-23); CALCIUM LEVEL 8.7 MG/DL (8.5-10.1); CARBON DIOXIDE LEVEL 28 MMOL/L (20-31); CHLORIDE LEVEL 106 MMOL/L (98-107); CHOLESTEROL LEVEL 168 MG/DL (<200); CHOLESTEROL RISK RATIO 3.13 (<5); CREATININE FOR GFR 0.61 MG/DL (0.55-1.30); GLOMERULAR FILTRATION RATE > 60.0 (>58); GLUCOSE, FASTING 102 MG/DL (60-100); HDL CHOLESTEROL 53.6 MG/DL (>40); LDL CHOLESTEROL 101.8 MG/DL (<100); NON-HDL-C 114.4 MG/DL; POTASSIUM SERUM 4.3 MMOL/L (3.5-5.1); SODIUM LEVEL 139 MMOL/L (136-145); THYROID STIMULATING HORMONE 1.822 uIU/ML (0.55-4.78); TOTAL 25(OH) VITAMIN D 77.3 NG/ML (20.0-100.0); TOTAL PROTEIN 6.6 G/DL (5.7-8.2); TRIGLYCERIDES LEVEL 63 MG/DL (<150)
[2022-08-11 11:05] LABS: FREE T4 0.77 NG/DL (0.89-1.76)
== END ==
LOC: M LABWUC 09:45
PROVIDERS: ATTEND Family Medicine
DX: I10 Essential (primary) hypertension (principal); E05.90 Thyrotoxicosis, unspecified without thyrotoxic crisis or storm

== ENCOUNTER → 2022-09-19 | Outpatient (CLI) | payer BC, MEDICAID ==
[2022-09-19 18:00] LABS: THYROXINE (T4) 9.2 UG/DL (4.5-10.9); TOTAL T3 131.5 NG/DL (60.0-181.0)
[2022-09-19 18:01] LABS: FREE T4 0.8 NG/DL (0.89-1.76); THYROID STIMULATING HORMONE 1.689 uIU/ML (0.55-4.78)
[2022-09-19 18:03] LABS: FREE T3 3.2 PG/ML (2.3-4.2)
[2022-09-19 18:04] LABS: TOTAL 25(OH) VITAMIN D 90.1 NG/ML (20.0-100.0)
== END ==
LOC: M WUC 14:14
PROVIDERS: ATTEND Internal Medicine Endocrinology, Diabetes & Metabolism
DX: E05.00 Thyrotoxicosis with diffuse goiter without thyrotoxic crisis or storm (principal); Z83.49 Family history of other endocrine, nutritional and metabolic diseases; E06.3 Autoimmune thyroiditis; E04.9 Nontoxic goiter, unspecified; E53.8 Deficiency of other specified B group vitamins; E55.9 Vitamin D deficiency, unspecified

== ENCOUNTER → 2022-12-20 | Outpatient (REF) | payer OTHER, MEDICAID ==
[2022-12-20 17:12] LABS: ALBUMIN 3.9 G/DL (3.2-5.2); ALKALINE PHOSPHATASE 80 U/L (46-116); ALT/SGPT 16 U/L (7.0-40); AST/SGOT < 8 U/L (<34); BILIRUBIN,TOTAL 0.3 MG/DL (0.3-1.2); BLOOD UREA NITROGEN 11 MG/DL (9-23); CARBON DIOXIDE LEVEL 26 MMOL/L (20-31); CHLORIDE LEVEL 107 MMOL/L (98-107); CREATININE FOR GFR 0.61 MG/DL (0.55-1.30); GLOMERULAR FILTRATION RATE > 60.0 (>58); GLUCOSE, FASTING 101 MG/DL (60-100); POTASSIUM SERUM 4.2 MMOL/L (3.5-5.1); SODIUM LEVEL 141 MMOL/L (136-145); TOTAL PROTEIN 6.8 G/DL (5.7-8.2)
[2022-12-20 17:15] LABS: FREE T4 0.83 NG/DL (0.89-1.76); THYROID STIMULATING HORMONE 1.469 uIU/ML (0.55-4.78); TOTAL T3 136.2 NG/DL (60.0-181.0)
[2022-12-20 17:16] LABS: FREE T3 3.2 PG/ML (2.3-4.2); THYROXINE (T4) 8.3 UG/DL (4.5-10.9); VITAMIN B12 LEVEL 770 PG/ML (211-911)
[2022-12-20 17:17] LABS: TOTAL 25(OH) VITAMIN D 66.2 NG/ML (20.0-100.0)
== END ==
LOC: M WUC 16:09
PROVIDERS: ATTEND Internal Medicine Endocrinology, Diabetes & Metabolism
DX: E05.00 Thyrotoxicosis with diffuse goiter without thyrotoxic crisis or storm (principal); E06.3 Autoimmune thyroiditis; E04.9 Nontoxic goiter, unspecified; E53.8 Deficiency of other specified B group vitamins; E55.9 Vitamin D deficiency, unspecified; Z83.49 Family history of other endocrine, nutritional and metabolic diseases

== ENCOUNTER → 2023-04-05 | Outpatient (CLI) | payer OTHER, MEDICAID ==
[2023-04-05 11:51] LABS: ALBUMIN 4.1 G/DL (3.2-5.2); ALKALINE PHOSPHATASE 84 U/L (46-116); ALT/SGPT 15 U/L (7.0-40); AST/SGOT 12 U/L (<34); BILIRUBIN,TOTAL 0.3 MG/DL (0.3-1.2); BLOOD UREA NITROGEN 13 MG/DL (9-23); CALCIUM LEVEL 9.5 MG/DL (8.5-10.1); CARBON DIOXIDE LEVEL 28 MMOL/L (20-31); CHLORIDE LEVEL 106 MMOL/L (98-107); CREATININE FOR GFR 0.61 MG/DL (0.55-1.30); GLOMERULAR FILTRATION RATE > 60.0 (>58); GLUCOSE, FASTING 109 MG/DL (60-100); POTASSIUM SERUM 4.1 MMOL/L (3.5-5.1); SODIUM LEVEL 139 MMOL/L (136-145); THYROID STIMULATING HORMONE 2.985 uIU/ML (0.55-4.78); THYROXINE (T4) 9.4 UG/DL (4.5-10.9); TOTAL PROTEIN 7.1 G/DL (5.7-8.2)
[2023-04-05 11:52] LABS: TOTAL 25(OH) VITAMIN D 62.2 NG/ML (20.0-100.0)
[2023-04-05 11:53] LABS: FREE T4 0.92 NG/DL (0.89-1.76); VITAMIN B12 LEVEL 942 PG/ML (211-911)
[2023-04-05 15:18] LABS: FREE T3 3.3 PG/ML (2.3-4.2); TOTAL T3 123.9 NG/DL (60.0-181.0)
== END ==
LOC: M WUC 09:27
PROVIDERS: ATTEND Internal Medicine Endocrinology, Diabetes & Metabolism
DX: E05.00 Thyrotoxicosis with diffuse goiter without thyrotoxic crisis or storm (principal); Z83.49 Family history of other endocrine, nutritional and metabolic diseases; E06.3 Autoimmune thyroiditis; E04.9 Nontoxic goiter, unspecified; E53.8 Deficiency of other specified B group vitamins; E55.9 Vitamin D deficiency, unspecified

== ENCOUNTER → 2023-08-03 | Outpatient (CLI) | payer OTHER, MEDICAID ==
[2023-08-03 12:38] LABS: BASO % 0.5 % (0.0-1.0); EOS # 0.1 10^3/uL (0.0-0.5); EOS % 0.6 % (0.0-3.0); HEMATOCRIT 44.4 % (36.0-47.0); HEMOGLOBIN 14.6 g/dl (12.0-15.5); LYMPH # 2.4 10^3/uL (1.5-5.0); LYMPH % 27.9 % (24.0-44.0); MEAN CORPUSCULAR HEMOGLOBIN 28.5 pg (27.0-33.0); MEAN CORPUSCULAR HGB CONC 32.9 g/dl (32.0-36.5); MEAN CORPUSCULAR VOLUME 86.5 fl (80.0-96.0); MONO # 0.9 10^3/uL (0.0-0.8); MONO % 10.1 % (2.0-8.0); NEUTROPHILS # 5.2 10^3/uL (1.5-8.5); NEUTROPHILS % 60.8 % (36.0-66.0); PLATELET COUNT, AUTOMATED 290 10^3/uL (150-450); RED BLOOD COUNT 5.13 10^6/uL (4.00-5.40); WHITE BLOOD COUNT 8.5 10^3/uL (4.0-10.0)
[2023-08-03 13:09] LABS: THYROID STIMULATING HORMONE 1.785 uIU/ML (0.55-4.78); THYROXINE (T4) 7.5 UG/DL (4.5-10.9); TOTAL 25(OH) VITAMIN D 100.1 NG/ML (20.0-100.0)
[2023-08-03 13:11] LABS: FREE T4 0.87 NG/DL (0.89-1.76); VITAMIN B12 LEVEL 1779 PG/ML (211-911)
[2023-08-03 13:14] LABS: ALBUMIN 3.7 G/DL (3.2-5.2); ALKALINE PHOSPHATASE 78 U/L (46-116); ALT/SGPT 17 U/L (7.0-40); AST/SGOT 10 U/L (<34); BILIRUBIN,TOTAL 0.6 MG/DL (0.3-1.2); BLOOD UREA NITROGEN 15 MG/DL (9-23); CALCIUM LEVEL 8.7 MG/DL (8.5-10.1); CARBON DIOXIDE LEVEL 26 MMOL/L (20-31); CHLORIDE LEVEL 110 MMOL/L (98-107); CREATININE FOR GFR 0.66 MG/DL (0.55-1.30); GLOMERULAR FILTRATION RATE > 60.0 (>58); GLUCOSE, FASTING 80 MG/DL (60-100); POTASSIUM SERUM 4.5 MMOL/L (3.5-5.1); SODIUM LEVEL 141 MMOL/L (136-145); TOTAL PROTEIN 6.2 G/DL (5.7-8.2)
[2023-08-03 13:57] LABS: FREE T3 3.2 PG/ML (2.3-4.2); TOTAL T3 141.3 NG/DL (60.0-181.0)
== END ==
LOC: M WUC 08:30
PROVIDERS: ATTEND Internal Medicine Endocrinology, Diabetes & Metabolism
DX: Z83.49 Family history of other endocrine, nutritional and metabolic diseases (principal); E05.00 Thyrotoxicosis with diffuse goiter without thyrotoxic crisis or storm; E06.3 Autoimmune thyroiditis; E04.9 Nontoxic goiter, unspecified; E53.8 Deficiency of other specified B group vitamins; E55.9 Vitamin D deficiency, unspecified

== ENCOUNTER → 2023-12-13 | Outpatient (CLI) | payer OTHER, MEDICAID ==
[2023-12-13 12:19] LABS: CHOLESTEROL RISK RATIO 3.44 (<5); LDL CHOLESTEROL 102.4 MG/DL (<100)
== END ==
LOC: M PLALAB 08:20
PROVIDERS: ATTEND Nurse Practitioner Family
DX: Z13.220 Encounter for screening for lipoid disorders (principal)

== ENCOUNTER → 2023-12-13 | Outpatient (CLI) | payer OTHER, MEDICAID ==
[2023-12-13 10:28] LABS: HEMOGLOBIN 15.1 g/dl (12.0-15.5); MEAN CORPUSCULAR HEMOGLOBIN 27.9 pg (27.0-33.0); MEAN CORPUSCULAR HGB CONC 32.1 g/dl (32.0-36.5); MEAN CORPUSCULAR VOLUME 86.9 fl (80.0-96.0); PLATELET COUNT, AUTOMATED 305 10^3/uL (150-450); RED BLOOD COUNT 5.41 10^6/uL (4.00-5.40); WHITE BLOOD COUNT 10.5 10^3/uL (4.0-10.0)
[2023-12-13 11:07] LABS: ALKALINE PHOSPHATASE 86 U/L (46-116); ALT/SGPT 22 U/L (7.0-40); AST/SGOT 10 U/L (<34); BILIRUBIN,TOTAL 0.5 MG/DL (0.3-1.2); BLOOD UREA NITROGEN 12 MG/DL (9-23); CALCIUM LEVEL 8.9 MG/DL (8.5-10.1); CARBON DIOXIDE LEVEL 26 MMOL/L (20-31); CHLORIDE LEVEL 107 MMOL/L (98-107); CREATININE FOR GFR 0.65 MG/DL (0.55-1.30); FREE T3 3.4 PG/ML (2.3-4.2); FREE T4 0.93 NG/DL (0.89-1.76); GLOMERULAR FILTRATION RATE > 60.0 (>58); GLUCOSE, FASTING 90 MG/DL (60-100); POTASSIUM SERUM 4.6 MMOL/L (3.5-5.1); SODIUM LEVEL 137 MMOL/L (136-145); THYROXINE (T4) 7.6 UG/DL (4.5-10.9); TOTAL PROTEIN 6.8 G/DL (5.7-8.2)
[2023-12-13 11:08] LABS: TOTAL 25(OH) VITAMIN D 42.1 NG/ML (20.0-100.0); VITAMIN B12 LEVEL 614 PG/ML (211-911)
== END ==
LOC: M PLALAB 08:22
PROVIDERS: ATTEND Internal Medicine Endocrinology, Diabetes & Metabolism
DX: E05.00 Thyrotoxicosis with diffuse goiter without thyrotoxic crisis or storm (principal); E06.3 Autoimmune thyroiditis; E04.9 Nontoxic goiter, unspecified; E53.8 Deficiency of other specified B group vitamins; E55.9 Vitamin D deficiency, unspecified; Z83.49 Family history of other endocrine, nutritional and metabolic diseases

== ENCOUNTER → 2024-07-24 | Outpatient (CLI) | payer OTHER, MEDICAID ==
[2024-07-24 14:38] LABS: THYROXINE (T4) 7.5 UG/DL (4.5-10.9)
[2024-07-24 14:39] LABS: ALKALINE PHOSPHATASE 77 U/L (35-104); ALT/SGPT 17 U/L (7.0-40); AST/SGOT 12 U/L (<34); BILIRUBIN,TOTAL 0.5 MG/DL (0.3-1.2); BLOOD UREA NITROGEN 12 MG/DL (9-23); CALCIUM LEVEL 8.8 MG/DL (8.5-10.1); CARBON DIOXIDE LEVEL 25 MMOL/L (20-31); CHLORIDE LEVEL 108 MMOL/L (98-107); GLOMERULAR FILTRATION RATE > 60.0 (>58); GLUCOSE, FASTING 75 MG/DL (60-100); POTASSIUM SERUM 4.2 MMOL/L (3.5-5.1); SODIUM LEVEL 141 MMOL/L (136-145); THYROID STIMULATING HORMONE 2.272 uIU/ML (0.55-4.78); TOTAL 25(OH) VITAMIN D 93.5 NG/ML (20.0-100.0); VITAMIN B12 LEVEL 1015 PG/ML (211-911)
[2024-07-24 14:40] LABS: FREE T4 0.96 NG/DL (0.89-1.76)
[2024-07-24 14:49] LABS: FREE T3 3.1 PG/ML (2.3-4.2); TOTAL T3 124.6 NG/DL (60.0-181.0)
== END ==
LOC: M WUC 08:35
PROVIDERS: ATTEND Internal Medicine Endocrinology, Diabetes & Metabolism
DX: E05.00 Thyrotoxicosis with diffuse goiter without thyrotoxic crisis or storm (principal); Z83.49 Family history of other endocrine, nutritional and metabolic diseases; E06.3 Autoimmune thyroiditis; E53.8 Deficiency of other specified B group vitamins; E55.9 Vitamin D deficiency, unspecified

== ENCOUNTER → 2025-02-06 | Outpatient (CLI) | payer OTHER ==
[~2025-02-06] MED LIST changes: -IBUP-1022 PO; +IBUP600T42 PO
[2025-02-06 13:17] LABS: BASO # 0.0 10^3/uL (0.0-0.2); BASO % 0.3 % (0.0-1.0); EOS # 0.0 10^3/uL (0.0-0.5); EOS % 0.2 % (0.0-3.0); LYMPH # 2.7 10^3/uL (1.5-5.0); LYMPH % 26.3 % (24.0-44.0); MONO # 1.0 10^3/uL (0.0-0.8); MONO % 10.0 % (2.0-8.0); NEUTROPHILS # 6.4 10^3/uL (1.5-8.5); NEUTROPHILS % 62.8 % (36.0-66.0); PLATELET COUNT, AUTOMATED 293 10^3/uL (150-450)
[2025-02-06 13:41] LABS: ALT/SGPT 18 U/L (7.0-40); AST/SGOT 14 U/L (<34); CALCIUM LEVEL 8.9 MG/DL (8.5-10.1); CARBON DIOXIDE LEVEL 27 MMOL/L (20-31); CHLORIDE LEVEL 104 MMOL/L (98-107); CREATININE FOR GFR 0.70 MG/DL (0.55-1.30); GLOMERULAR FILTRATION RATE > 90.0 (>58); POTASSIUM SERUM 4.6 MMOL/L (3.5-5.1); SODIUM LEVEL 141 MMOL/L (136-145)
[2025-02-06 13:44] LABS: THYROXINE (T4) 9.4 UG/DL (4.5-10.9); TOTAL T3 132.4 NG/DL (60.0-181.0)
[2025-02-06 13:45] LABS: TOTAL 25(OH) VITAMIN D 77.4 NG/ML (20.0-100.0); VITAMIN B12 LEVEL 860 PG/ML (211-911)
[2025-02-06 13:46] LABS: T UPTAKE 28.3 % (22.5-37.0)
== END ==
LOC: M WUC 08:20
PROVIDERS: ATTEND Internal Medicine Endocrinology, Diabetes & Metabolism
DX: E05.00 Thyrotoxicosis with diffuse goiter without thyrotoxic crisis or storm (principal); Z83.49 Family history of other endocrine, nutritional and metabolic diseases; E06.3 Autoimmune thyroiditis; E53.8 Deficiency of other specified B group vitamins; E55.9 Vitamin D deficiency, unspecified; E04.9 Nontoxic goiter, unspecified

== ENCOUNTER → 2025-03-15 | Outpatient (REF) | payer OTHER | LOC: M LAB REF 17:38 | DX: B34.9 Viral infection, unspecified (principal) ==